=== PATIENT | male | born 1990 | race African-American/Black ===

== ENCOUNTER 2018-05-19 09:20 | Outpatient (CLI) | payer BC | END 2018-05-19 23:59 | disposition home or self-care (01) | LOC: LAB 09:20 | PROVIDERS: ATTEND Legal Medicine | DX: Z00.01 Encounter for general adult medical examination with abnormal findings (principal); R10.33 Periumbilical pain; Z85.46 Personal history of malignant neoplasm of prostate ==

== ENCOUNTER 2022-02-21 07:18 | Emergency (ER) | payer BC, OTHER ==
[~2022-02-21] VITALS: Ht 180.3 cm; Wt 65.8 kg
--- NOTE | 2022-02-21 07:25 | NUR ---
RECEIVED PT 31 YRS MALE WALKING IN FROM HOME HOME C/O PAIN on lteye unable to open somthing inside my eye
[2022-02-21] MEDS ORDERED: FLUORESCEIN SODIUM OPHTH 1 EA STRIP ONE (07:36)
--- NOTE | 2022-02-21 07:40 | NUR ---
seen by DR. REYES EYE EXMIN DONE USED [facility]ARD[facility] LAMP
[2022-02-21] MEDS ORDERED: CIPR5DRO LEFTEYE (08:02)
--- NOTE | 2022-02-21 08:15 | NUR ---
D/C INSTRCTION GIVEN TO PT FULLY AND VERBLIZED UNDERSTOOD D/C HOME WITH RX AND FALLOW UP CARE
[2022-02-21 08:24] VITALS: BP 148/84
== END 2022-02-21 08:25 | disposition home or self-care (01) ==
LOC: ER 07:23
DX: S05.02XA Injury of conjunctiva and corneal abrasion without foreign body, left eye, initial encounter (principal); Z60.2 Problems related to living alone; X58.XXXA Exposure to other specified factors, initial encounter; Y93.89 Activity, other specified; Y92.89 Other specified places as the place of occurrence of the external cause; Y99.8 Other external cause status